=== PATIENT | female | born 1985 | race African-American/Black ===

== ENCOUNTER 2017-02-07 21:37 | Emergency (ER) | payer MEDICAID ==
[~2017-02-07] VITALS: Ht 170.2 cm; Wt 75.7 kg
[~2017-02-07 21:37] MED LIST: BUTA1TAB30 PO; HYDR1CAP; HYDR4TAB PO
[2017-02-07 21:40] VITALS: BP 163/94; PULSE 68; RESP 18; TEMP 98.2; O2SAT 100
[2017-02-07] MEDS ORDERED: IBUP200C PO (21:55)
[2017-02-07] MEDS ORDERED: FEXO1TAB97 PO (21:55)
[2017-02-07] MEDS ORDERED: AUGM875T3 PO (21:59)
[2017-02-07] MEDS ORDERED: MEDR4PAK PO (21:59)
--- NOTE | 2017-02-07 21:59 | PD ---
HPI Chief Complaint: Headache Time Seen by Provider: 21:47 Travel History International Travel<30 days: No Contact w/Intl Traveler<30days: No Traveled to known affect area: No History of Present Illness HPI 2 DAYS OF FRONTAL HEADACHE, 8/10, NONRADIATING, THROBBING, NO PHOTOPHOBIA, NO N/ V/D/NECK STIFFNESS, HAS H/O SEASONAL ALLERGIES AND USUALLY RENE D HELPS BUT NOT THIS TIME. PFSH Past Medical History Asthma: Yes ( A CHILD) Cardiovascular Problems: Yes (heart murmur) Diminished Hearing: No Reproductive: Yes (GENITAL HERPES) Immunizations Current: No ?: Not LMP: 01/30/17 : 3 Para: 1 Miscarriage: 0 : 1 Past Surgical History Cardiac Surgery: Yes (teratoma tumors removed ) Section: Yes (X1) Gynecologic Surgery: Yes () Thoracic Surgery: Yes (BENIGN CHEST TUMORS REMOVED 04/20) Other Surgery: Yes (CHEST TUMORS REMOVED 2006-TERATOMA X 3 REMOVED) Social History Alcohol Use: No Tobacco Use: No Substance Use: No Allergies-Medications (Allergen,Severity, Reaction): Coded Allergies: No Known Allergies (Verified , 02/07/17) Reported Meds & Prescriptions Reported Meds & Active Scripts Active Medrol Dosepak (Methylprednisolone) 4 Mg Dspk 4 Mg PO DIRECTED Per Pharmacist direction Augmentin (Amoxicillin-Clavulanate) 875-125 Mg Tab 1 Tab PO BID Reported Ibuprofen 200 Mg Cap 600 Mg PO Q6H PRN Rene-D 24 Hour Allergy (Fexofenadine-Pseudoephedrine ER 24 HR) 180-240 Yue 1 Tab PO DAILY Zohydro ER (Hydrocodone ER) 40 Mg Caper Butalbital-Acetaminophen 50-325 Mg Tab 1-2 PO Q4HR PRN Do not exceed 6 tablets per day. Hydromorphone (Hydromorphone HCl) 4 Mg Tab 4 Mg PO Q4-6H PRN Review of Systems Except as stated in HPI: all other systems reviewed are Neg HENT: Positive: Headaches, Congestion Physical Exam Narrative GENERAL: SKIN: Warm and dry. NO RASH HEAD: Atraumatic. Normocephalic. EYES: Pupils equal and round. No scleral icterus. No injection or drainage. ENT: No nasal bleeding or discharge. Mucous membranes pink and moist. TTP OVER FRONTAL SINUS REGIONS AND CASSIDY TM HAS EFFUSIONS NOTED NECK: Trachea midline. No JVD. SOFT/SUPPLE NECK CARDIOVASCULAR: Regular rate and rhythm. RESPIRATORY: No accessory muscle use. Clear to auscultation. Breath sounds equal bilaterally. GASTROINTESTINAL: Abdomen soft, non-tender, nondistended. Hepatic and splenic margins not palpable. MUSCULOSKELETAL: Extremities without clubbing, cyanosis, or edema. No obvious deformities. NEUROLOGICAL: Awake and alert. No obvious cranial nerve deficits. Motor grossly within normal limits. Five out of 5 muscle strength in the arms and legs. Normal speech. PSYCHIATRIC: Appropriate mood and affect; insight and judgment normal. Data Data Last Documented VS Vital Signs Date Time Temp Pulse Resp B/P Pulse Ox O2 Delivery O2 Flow Rate FiO2 02/07/17 23:50 60 16 156/96 99 Room Air 02/07/17 21:40 98.2 Orders Ed Urine Pregnancytest Poc (02/07/17 21:47) Promethazine Inj (Phenergan Inj) (02/07/17 22:00) Ketorolac Inj (Toradol Inj) (02/07/17 22:00) Amoxicil-Clavulanate (Augmentin) (02/07/17 22:00) Ondansetron Odt (Zofran Odt) (02/07/17 22:00) Hydromorphone Pf Inj (Dilaudid Pf Inj) (02/07/17 22:00) [facility] Medical Decision Making Medical Screen Exam Complete: Yes Emergency Medical Condition: Yes Medical Record Reviewed: Yes Differential Diagnosis SINUSITIS V TENSION KEEN V OM Narrative Course PATIENT WAS NOTED TO NOT BE , GIVEN PHENERGAN, DILAUDID AND TORADOL IM TO CONTROL PAIN, AND PO AUGMENTIN TO ADDRESS SINUS INFECTION....NO ADDITIONAL PAIN MEDICATIONS WRITTEN FOR PATIENT SHE IS ALREADY ON PAIN MANAGEMENT Diagnosis Primary Impression: ACUTE FRONTAL SINUSITIS Patient Instructions: General Instructions, Sinusitis (ED) Scripts Methylprednisolone Dosepak (Medrol Dosepak)4 Mg Dspk4 Mg PO DIRECTED #1 DSPK Per Pharmacist direction Prov:Gianluca House MD 02/07/17 Amoxicillin-Clavulanate (Augmentin)875-125 Mg Tab1 Tab PO BID #20 TAB Prov:Gianluca House MD 02/07/17 Disposition: 01 DISCHARGE HOME Condition: Stable Gianluca House MD Feb 07, 2017 21:59
[2017-02-07] MEDS ORDERED: AMOXICILLIN/CLAVULANATE K 875 MG TAB PO ONE (22:00)
[2017-02-07] MEDS ORDERED: ONDANSETRON ODT 4 MG TAB PO ONE (22:00)
[2017-02-07] MEDS ORDERED: HYDROmorphone HCL PF 1 MG/ML VIAL IM ONE (22:00)
[2017-02-07] MEDS ORDERED: PROMETHAZINE INJ 25 MG/ML VIAL IM ONE (22:00)
[2017-02-07] MEDS ORDERED: KETOROLAC TROMETHAMINE 60 MG/2 ML (IM) VIAL IM ONE (22:00)
[2017-02-07 22:20] VITALS: BP 157/96; PULSE 67; RESP 16; O2SAT 99
[2017-02-07 22:50] VITALS: BP 165/98; PULSE 58; RESP 16; O2SAT 97
[2017-02-07 23:25] VITALS: BP 148/96; PULSE 52; RESP 16; O2SAT 98
[2017-02-07 23:50] VITALS: BP 156/96; PULSE 60; RESP 16; O2SAT 99
== END 2017-02-08 00:04 | disposition home or self-care (01) ==
LOC: PHED 21:37
DX: J01.10 Acute frontal sinusitis, unspecified (principal)
CPT/HCPCS: 84703; 96372; 99284; J1170; J1885; J2550

== ENCOUNTER 2017-10-07 23:09 | Emergency (ER) | payer MEDICAID ==
[~2017-10-07 23:09] MED LIST changes: +AUGM875T3 PO; +FEXO1TAB97 PO; +IBUP200C PO; +MEDR4PAK PO
--- NOTE | 2017-10-08 01:26 | PD ---
HPI Chief Complaint left lower abdominal pain Date Seen: Oct 08, 2017 Travel History International Travel<30 Days: No Contact w/Intl Traveler<30Days: No History of Present Illness HPI Ms. Isabel is a [address] Montoya at ? weeks (patient has unclear LMP; thinks she could be 9-16 weeks GA) who presents with left lower quadrant abdominal pain. Patient reports that she has had abdominal pain since ~1 pm today; she states that this is dull and in her left lower quadrant. It is constant in nature. Patient has had normal bowel movement today; she is passing gas. Some mild nausea for several days. No vomiting. No fevers. No dysuria. Increased urinary frequency. No chest pain or shortness of breath. Patient feels a "lump" in her lower left abdomen around the area of her pain. Patient states that she had outpatient HCG obtained which was >100,000. She had planned appointment with Dr. Montoya scheduled for tomorrow but this was cancelled; she has not yet seen an OB provider or US this . Mild headaches, on chronic Fioricet. Per EMR review, patient has PMH of artificial disc placement at C5-C6; some degeneration of C6-C7. Undergoing PT. Patient seeing Neurosurgery. Patient also reports history of teratoma removal from mediastinum. History Past Medical History Narrative Medical Anemia chronic back pain on Vaughn Chronic headaches on Fioricet Obstetric History Obstetric History CS in 2006 (herpes outbreak) 3 1st term losses Past Surgical History Narrative Surgical Teratoma removal- mediastinal Thoracic biopsy CS x1 Social History Narrative Social History Patient lives with Subsequently suggested marijuana usage Tobacco Use: No Substance Abuse: No Allergies-Medications (Allergen,Severity, Reaction): Coded Allergies: No Known Allergies (Verified , 02/07/17) Home Meds Active Scripts Methylprednisolone Dosepak (Medrol Dosepak) 4 Mg Dspk, 4 MG PO DIRECTED, #1 DSPK Per Pharmacist direction Prov:Gianluca House MD 02/07/17 Amoxicillin-Clavulanate (Augmentin) 875-125 Mg Tab, 1 TAB PO BID for Infection, #20 TAB Prov:Gianluca House MD 02/07/17 Reported Medications Ibuprofen (Ibuprofen) 200 Mg Cap, 600 MG PO Q6H Y for PAIN, CAP 0 Refills 02/07/17 Fexofenadine-Pseudoephedrine ER 24 HR (Sydni-D 24 Hour Allergy) 180-240 Yue , 1 TAB PO DAILY for Allergy Management, #30 TAB 0 Refills 02/07/17 Hydrocodone ER (Zohydro ER) 40 Mg Caper 01/24/17 Butalbital-Acetaminophen (Butalbital-Acetaminophen) 50-325 Mg Tab, 1-2 PO Q4HR Y for HEADACHE, TAB 0 Refills Do not exceed 6 tablets per day. 01/24/17 Hydromorphone (Hydromorphone) 4 Mg Tab, 4 MG PO Q4-6H Y for PAIN, #30 TAB 0 Refills 12/25/16 Review of Systems General / Constitutional: No: Fever Eyes: No: Diploplia, Blurred Vision HENT: Headaches (intermittent) Cardiovascular: No: Irregular Rhythm, Chest Pain or Discomfort Respiratory: No: Cough, Short of Breath Gastrointestinal: Nausea (mild), Abdominal Pain (left lower quadrant), No: Vomiting Genitourinary: Frequency, No: Urgency, Dysuria Skin: No Rash, No Itching Neurologic: No: Weakness Psychiatric: No: Anxiety, Depression Physical Exam T 98.5 BP 121/68 HR 75 RR 18 Narrative GENERAL: Well-nourished, well-developed patient. SKIN: Warm and dry. HEAD: Normocephalic and atraumatic. EYES: No scleral icterus. No injection or drainage. ENT: No nasal drainage noted. Mucous membranes pink. Airway patent. NECK: Supple, trachea midline. No JVD. CARDIOVASCULAR: Regular rate and rhythm without murmurs. RESPIRATORY: CTAB; normal rate EXTREMITIES: No cyanosis or edema. NEUROLOGICAL: Awake and alert. Motor and sensory grossly within normal limits. Normal speech. ABDOMEN/GI: Abdomen soft, mild tenderness in suprapubic area and left lower quadrant. some nodularity in LLQ; suspect granulation from prior CS bowel sounds present, no rebound, no guarding Uterine Contractions:None FHT's: Doppler US by nursing staff did not reveal heart tones Data Data Orders Orders Urinalysis - C+S If Indicated (10/08/17 00:43) MDM Medical Record Reviewed: Yes Narrative Course / MDM 32 yo patient at ? weeks (patient has unclear LMP; thinks she could be 9 -16 weeks GA) who presents with left lower quadrant abdominal pain -No Doppler heart tones -Bedside US used- no IUP visualized -stable maternal vitals; patient does not seem clinically ill -Urine HCG positive Plan: -Will obtain US to establish IUP/dating and rule-out ectopic -Will check blood typing, CBC, CMP, UA, UDS Interval: US- gestation at 8 weeks. No ovarian or tubal pathology identified CBC- Hgb 10 CMP- wnl bHCG [id number] UDS- marijuana, barbiturates UA- negative Updated plan- -Patient reassured of likely benign etiology of symptoms; patient to f/u with OBGYN -Patient counselled and given prescription for vitamins -Colace recommended for bowel motility on opiates -Iron supplementation recommended for anemia Disposition: 01 DISCHARGE HOME Condition: Stable Reji Rodriguez MD, R3 Oct 08, 2017 01:26
[2017-10-08 01:36] LABS: AUTOMATED NEUTROPHIL # 2.8 TH/MM3 (1.8-7.7); BASOPHIL % 0.5 % (0.0-2.0); EOSINOPHIL # 0.1 TH/MM3 (0-0.4); HEMATOCRIT 29.5 % (35.0-46.0); LYMPH % 29.8 % (9.0-44.0); LYMPHOCYTE # 1.4 TH/MM3 (1.0-4.8); MEAN CELL VOLUME 85.8 FL (80.0-100.0); MEAN CORPUSCULAR HEMOGLOBIN 29.1 PG (27.0-34.0); MEAN PLATELET VOLUME 9.6 FL (7.0-11.0); MONO % 5.8 % (0.0-8.0); MONOCYTE # 0.3 TH/MM3 (0-0.9); NEUT % 60.9 % (16.0-70.0); PLATELET COUNT 237 TH/MM3 (150-450); RED BLOOD COUNT 3.44 MIL/MM3 (4.00-5.30); WHITE BLOOD COUNT 4.6 TH/MM3 (4.0-11.0)
[2017-10-08 01:48] LABS: BILIRUBIN, URINE NEG (NEG); BLOOD, URINE NEG (NEG); GLUCOSE,URINE NEG (NEG); KETONE, URINE NEG (NEG); MUCUS URINE FEW /lpf (OCC); NITRITE,URINE NEG (NEG); SQUAMOUS EPITHELIAL CELL URINE <1 /hpf (0-5); URINE COLOR YELLOW (YELLW/STRAW); URINE LEUKOCYTE ESTERASE NEG (NEG)
[2017-10-08 02:09] LABS: ALBUMIN 3.6 GM/DL (3.4-5.0); ALT (GPT) 13 U/L (10-53); AST (GOT) 13 U/L (15-37); BICARBONATE 27.6 MEQ/L (21.0-32.0); BLOOD UREA NITROGEN 8 MG/DL (7-18); CHLORIDE 102 MEQ/L (98-107); CREATININE 0.65 MG/DL (0.50-1.00); GLOMERULAR FILTRATION RATE 129 ML/MIN (>89); GLUCOSE,RANDOM 88 MG/DL (74-106); SODIUM (NA) 138 MEQ/L (136-145)
[2017-10-08 02:25] LABS: ALKALINE PHOSPHATASE 57 U/L (45-117); TOTAL BILIRUBIN ADULT 0.1 MG/DL (0.2-1.0); TOTAL PROTEIN 7.5 GM/DL (6.4-8.2)
--- NOTE | 2017-10-08 02:45 | PD ---
History of Present Illness History of Present Illness [facility] Attending Patient was seen and evaluated with resident. Patient presents reporting she is 16 weeks gestational age, however has had no confirmation of by ultrasound. A bedside ultrasound was placed, but unable to confirm due to early gestational age. Evaluation ordered with quant Bhcg, CBC, CMP, UDS , type. Ultrasound performed by radiology with IUP at 8.0 with corresponding EDC 05/20/18. Patient counseled, Rx given for PNV, recommend FeSO4/Colace. Linnette Bundy MD Oct 08, 2017 02:45
--- NOTE | 2017-10-08 02:47 | PD ---
MDM Diagnosis Diagnosis: Primary Impression: 8 weeks gestation of Disposition: 01 DISCHARGE HOME Condition: Good Patient Instructions: General Instructions, Movement (ED), Abdominal Pain in (ED) Additional Instructions: please establish care with [facility], dr Ortiz. or local provider Departure Forms: Tests/Procedures Linnette Bundy MD Oct 08, 2017 02:47
--- NOTE | 2017-10-08 03:04 | RADRPT ---
THIS REPORT IS IN ERROR. PLEASE DISREGARD COPIES OF THIS REPORT. THIS REPORT IS IN ERROR. PLEASE DISREGARD COPIES OF THIS REPORT. THIS REPORT IS IN ERROR. PLEASE DISREGARD COPIES OF THIS REPORT. EXAM DATE/TIME : 10/08/2017 01:59 [facility] COMPARISON: No previous studies available for comparison. INDICATIONS : Pelvic pain. LAB(S): Beta-hC,621 MEDICAL HISTORY : Heart murmur. Genital herpes. Asthma. SURGICAL HISTORY : section. Chest tumors removed. Diskectomy. ENCOUNTER: Subsequent ACUITY: 1 day PAIN SCORE: 5/10 LOCATION: Left pelvis MEASUREMENTS: UTERUS: 7.9 x 6.8 x 6.4 cm ENDOMETRIAL STRIPE: 15 mm RIGHT OVARY: n/a cm Non visualized LEFT OVARY: 5.5 x 3.9 x 2.7 cm FREE FLUID: No CROWN RUMP LENGTH: 1.63 = 8 WKS 0 DAYS FHR: 152 BPM FINDINGS: UTERUS: Intrauterine is seen. heart tones and yolk sac seen. RIGHT OVARY: Not visualized. LEFT OVARY: Normal sinus measures 20 x 20 x 19 mm MISCELLANEOUS: No free fluid. CONCLUSION: 1. Intrauterine estimated at 8 weeks zero days. 2. Nonvisualization right ovary. 3. Corpus luteal cyst left ovary. Luis Hernandez MD on October 08, 2017 at 2:59 Board Certified Radiologist. This report was verified electronically. THIS REPORT IS IN ERROR. PLEASE DISREGARD COPIES OF THIS REPORT. THIS REPORT IS IN ERROR. PLEASE DISREGARD COPIES OF THIS REPORT. THIS REPORT IS IN ERROR. PLEASE DISREGARD COPIES OF THIS REPORT. [facility]
--- NOTE | 2017-10-14 13:52 | RADRPT ---
EXAM DATE/TIME: 10/08/2017 01:59 [place] Corrected on: October 14, 2017; Corrected exam header (exam description) [facility] COMPARISON: No previous studies available for comparison. INDICATIONS : Pelvic pain. LAB(S): Beta-hC,621 MEDICAL HISTORY : Heart murmur. Genital herpes. Asthma. SURGICAL HISTORY : section. Chest tumors removed. Diskectomy. ENCOUNTER: Subsequent ACUITY: 1 day PAIN SCORE: 5/10 LOCATION: Left pelvis MEASUREMENTS: UTERUS: 7.9 x 6.8 x 6.4 cm ENDOMETRIAL STRIPE: 15 mm RIGHT OVARY: n/a cm Non visualized LEFT OVARY: 5.5 x 3.9 x 2.7 cm FREE FLUID: No CROWN RUMP LENGTH: 1.63 = 8 WKS 0 DAYS FHR: 152 BPM FINDINGS: UTERUS: Intrauterine is seen. heart tones and yolk sac seen. RIGHT OVARY: Not visualized. LEFT OVARY: Normal sinus measures 20 x 20 x 19 mm MISCELLANEOUS: No free fluid. CONCLUSION: 1. Intrauterine estimated at 8 weeks zero days. 2. Nonvisualization right ovary. 3. Corpus luteal cyst left ovary. Luis Hernandez MD on October 08, 2017 at 2:59 Board Certified Radiologist. This report was verified electronically.
== END 2017-10-08 03:07 | disposition home or self-care (01) ==
LOC: HOBED 23:09
DX: O26.891 Other specified pregnancy related conditions, first trimester (principal); R10.32 Left lower quadrant pain; J45.909 Unspecified asthma, uncomplicated; Z79.899 Other long term (current) drug therapy; Z3A.08 8 weeks gestation of pregnancy
CPT/HCPCS: 76830; 76856; 80053; 80307; 81001; 84702; 84703; 85025; 86900; 86901; 99284; G0481; 76700